=== PATIENT | male | born 1980 | race African-American/Black ===

== ENCOUNTER 2019-02-05 11:28 | Emergency (ER) | payer SELFPAY ==
[~2019-02-05] VITALS: Ht 182.9 cm; Wt 87.0 kg
[2019-02-05 11:35] VITALS: BP 153/91
[2019-02-05] MEDS ORDERED: IBUPROFEN 800MG TABLET PO ONE (14:45)
== END 2019-02-05 14:58 | disposition home or self-care (01) ==
LOC: ER 11:28
DX: S10.93XA Contusion of unspecified part of neck, initial encounter (principal); V49.49XA Driver injured in collision with other motor vehicles in traffic accident, initial encounter; Y93.89 Activity, other specified; Y92.89 Other specified places as the place of occurrence of the external cause; Y99.8 Other external cause status
CPT/HCPCS: 99282